=== PATIENT | male | born 1995 | race Two or more races ===

== ENCOUNTER → 2022-05-01 | Emergency (ER) | payer OTHER ==
[~2022-05-01] VITALS: Ht 167.6 cm; Wt 83.9 kg
== END | disposition home or self-care (01) ==
LOC: ER 16:34
DX: S99.811A Other specified injuries of right ankle, initial encounter (principal); W09.8XXA Fall on or from other playground equipment, initial encounter; Y93.89 Activity, other specified; Y92.89 Other specified places as the place of occurrence of the external cause; S69.81XA Other specified injuries of right wrist, hand and finger(s), initial encounter; S99.821A Other specified injuries of right foot, initial encounter; S59.811A Other specified injuries right forearm, initial encounter